=== PATIENT | female | born 1980 | race Caucasian/White ===

== ENCOUNTER 2020-07-27 22:34 | Emergency (ER) | payer OTHER ==
[~2020-07-27] VITALS: Ht 162.6 cm; Wt 104.3 kg
[2020-07-27 22:53] VITALS: BP 149/80
--- NOTE | 2020-07-27 23:40 | NUR ---
WOUND CARE PROVIDED TO PATIENT
[2020-07-27] MEDS ORDERED: TDAP [DIPH/PERTUSSIS/TET] 0.5 ML VIAL IM ONE (23:46)
[2020-07-27] MEDS ORDERED: IBUPROFEN 600 MG TABLET ONE (23:46)
[2020-07-27] MEDS: IBUPROFEN 600 MG TABLET PO ONE (23:56)
[2020-07-27] MEDS: TDAP [DIPH/PERTUSSIS/TET] 0.5 ML VIAL IM ONE (23:56)
== END 2020-07-27 23:58 | disposition home or self-care (01) ==
LOC: ER 22:41
DX: S01.81XA Laceration without foreign body of other part of head, initial encounter (principal); Z88.0 Allergy status to penicillin; W20.8XXA Other cause of strike by thrown, projected or falling object, initial encounter; Y93.89 Activity, other specified; Y92.89 Other specified places as the place of occurrence of the external cause; Y99.8 Other external cause status
CPT/HCPCS: 12011; 90471; 90715; 99283; A6403